=== PATIENT | female | born 1950 | race Asian ===

== ENCOUNTER 2019-11-17 19:52 | Inpatient (IN) | payer MEDICAID, MEDICARE, OTHER ==
[2019-11-17 23:05] VITALS: BP 158/91
--- NOTE | 2019-11-18 12:35 | Psychiatric Evaluation ---
DATE OF SERVICE: 11/18/2019 JUSTIFICATION FOR HOSPITALIZATION: Coming in from an ER exhibiting multiple symptoms, psychosis, SI, HI in the ER. HISTORY OF PRESENT ILLNESS: This is a 69-year-old female who talks very loudly on exam, very fast, is still hard for me to understand what she says. Apparently refused to take her medications at home, came to the ER. Per ER documentation, making statements of harming self and other people, poor orientation, withdrawn. On [id number], the patient is telling me to go away, does not want to talk to me, "you are arrogant at one point." It is really unclear what she is saying. Seems very impulsive, unpredictable, just lying on the chairs in the day room, sleeping. PAST PSYCHIATRIC HISTORY: Unclear. SOCIAL HISTORY: The patient is a very poor historian. Per documentation, there is not much information such as bipolar and schizophrenia. Medications were noted. Social unclear. We will need to have [employer] to increase collateral. MEDICAL HISTORY: Please see full H and P. MENTAL STATUS EXAMINATION: Disheveled, unkempt, lying down, small statured female, talking very quickly, heavy accent, hard to understand what she says. I asked her to repeat herself. This just makes her more and more upset. DIAGNOSIS: Likely schizophrenia. ASSESSMENT: The patient is requiring hospitalization, apparently was suicidal or homicidal, concerns for grave disability, seemingly confused on exam, but hard to fully assess. PLAN: Treatment plan includes group as well as milieu therapy. We will continue inpatient monitoring. Adjust and titrate medications. Restart antipsychotics. JOB# [id number]
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
[2019-11-19] MEDS ORDERED: GLUCAGON HCl 1 MG KIT IM PRN ×2 (11:23→11:45)
[2019-11-19] MEDS ORDERED: INSULIN LISPRO SLIDING SCALE 100 UNITS/ML UNIT SUBQ SCH (13:00)
--- NOTE | 2019-11-19 14:23 | Internal Medicine Prog Note ---
Internal Medicine Subjective - Subjective Service Date: 11/19/19 Patient seen and examined:: without staff Patient is:: awake, ambulating Internal Medicine Objective - Results Recent Labs: Laboratory Last Values POC Glucose 220 MG/DL (70 - 105) H 11/19/19 11:23 - Physical Exam Vitals and I&O: Vital Signs Temp 98.1 F 11/19/19 06:30 Pulse 108 11/19/19 06:30 Resp 19 11/19/19 06:30 BP 143/78 11/19/19 06:30 Pulse Ox 99 11/19/19 06:30 Intake & Output 11/18/19 11/19/19 11/19/19 18:59 06:59 18:59 Intake Total 880 120 Output Total 3 Balance 880 117 Intake: Oral 640 120 Other 240 Output: Urine 3 Stool 0 Other: # Voids 3 3 # Bowel Movements 0 0 Active Medications: Current Medications Acetaminophen (Tylenol) 650 mg PO Q4H PRN PRN Reason: Pain (Mild 1-3) Stop: 01/16/20 23:47 Last Admin: 11/19/19 10:06 Dose: 650 mg Dextrose (Glutose 40%) 18.75 gm PO PRN PRN PRN Reason: BS Below 70 if tolerate po Stop: 01/18/20 11:44 Donepezil HCl (Aricept) 5 mg PO HS [facility] Stop: 01/18/20 20:59 Glucagon (Glucagen) 1 mg IM PRN PRN PRN Reason: BS Below 70 if not tolerate po Stop: 01/18/20 11:44 Insulin Human Lispro (Humalog Insulin Sliding Scale) 0 units SUBQ ACHS [facility]; Protocol Stop: 01/18/20 16:29 Lorazepam (Ativan) 0.5 mg PO Q4HR PRN; Protocol PRN Reason: Anxiety Stop: 12/17/19 21:59 Nitrofurantoin Macrocrystals (Macrobid) 100 mg PO BID [facility]; Protocol Stop: 01/17/20 18:29 Last Admin: 11/19/19 09:29 Dose: 100 mg Risperidone (Risperdal) 0.5 mg PO BID [facility]; Protocol Stop: 01/17/20 16:59 Last Admin: 11/19/19 09:29 Dose: 0.5 mg Zolpidem Tartrate (Ambien) 5 mg PO HS PRN PRN Reason: Insomnia Stop: 01/16/20 23:47 HEENT: NC/AT Neck: Supple Lungs: CTAB Cardiovascular: RRR, Normal S1, Normal S2 Abdomen: soft Extremities: clear Neurological: no change Internal Medicine Assmt/Plan - Assessment Assessment: 1. Hyperglycemia 2. Schizophrenia, likely - Plan Plan: patient's random blood sugar is 220 consistent with d.m. will start patient on metformin once hga1c result is back
--- NOTE | 2019-11-19 16:41 | Progress Notes ---
DATE: 11/19/2019 SUBJECTIVE: The patient is in the hospital, it is really hard to understand her. She does speak Persian, but she talks very fast in a mumbled voice. She tells me that she was actually born in [place]. Staff noting she is A and O x 2 only. She is not aggressive or combative, but really wants to stay to herself while I am talking to her. She answers back to me, although it hard to understand. Then, she simply walks into a room and closed the door. Staff noting flat affect, seems to be hallucinating, talking to people that are not there, speaking Kosovan, Persian. Currently on a dosing of Risperdal, seems to be tolerating, documentation also noted of dementia. Medications were reviewed. Labs reviewed. Vitals reviewed. Blood pressure 105/63, pulse of 106. MENTAL STATUS EXAMINATION: Small statured female, acting really strange, mumbling to self, not making much sense on exam, very hard to follow her thought processes, noted dementia, confusional state, poor eye contact. DIAGNOSIS: Likely dementia, possible schizophrenia. It is unclear. Poor historian. ASSESSMENT: A 69-year-old female, hard to assess. Time spent with the patient and chart reviewed. PLAN: I will be initiating Aricept, continue dosing of antipsychotic medications, extend the hold. JOB# [id number]
[2019-11-19] MEDS: INSULIN LISPRO SLIDING SCALE 100 UNITS/ML UNIT SUBQ SCH ×2 (16:51→21:45)
[2019-11-20] MEDS: INSULIN LISPRO SLIDING SCALE 100 UNITS/ML UNIT SUBQ SCH ×4 (06:44→22:35)
--- NOTE | 2019-11-20 14:30 | Internal Medicine Prog Note ---
Internal Medicine Subjective - Subjective Service Date: 11/20/19 Patient seen and examined:: without staff Patient is:: awake, ambulating Per staff patient has:: no adverse event, no episodes of fall Internal Medicine Objective - Results Recent Labs: Laboratory Last Values POC Glucose 117 MG/DL (70 - 105) H 11/20/19 11:23 - Physical Exam Vitals and I&O: Vital Signs Temp 97.3 F 11/20/19 06:26 Pulse 103 11/20/19 06:26 Resp 17 11/20/19 08:00 BP 155/89 11/20/19 06:26 Pulse Ox 98 11/20/19 06:26 Intake & Output 11/19/19 11/20/19 11/20/19 18:59 06:59 18:59 Intake Total 1200 120 Balance 1200 120 Intake: Oral 1200 120 Other: # Voids 3 1 # Bowel Movements 0 0 Active Medications: Current Medications Acetaminophen (Tylenol) 650 mg PO Q4H PRN PRN Reason: Pain (Mild 1-3) Stop: 01/16/20 23:47 Last Admin: 11/19/19 22:28 Dose: 650 mg Dextrose (Glutose 40%) 18.75 gm PO PRN PRN PRN Reason: BS Below 70 if tolerate po Stop: 01/18/20 11:44 Donepezil HCl (Aricept) 5 mg PO HS [facility] Stop: 01/18/20 20:59 Last Admin: 11/19/19 21:45 Dose: 5 mg Glucagon (Glucagen) 1 mg IM PRN PRN PRN Reason: BS Below 70 if not tolerate po Stop: 01/18/20 11:44 Insulin Human Lispro (Humalog Insulin Sliding Scale) 0 units SUBQ ACHS [facility]; Protocol Stop: 01/18/20 16:29 Last Admin: 11/20/19 11:26 Dose: Not Given Lorazepam (Ativan) 0.5 mg PO Q4HR PRN; Protocol PRN Reason: Anxiety Stop: 12/17/19 21:59 Nitrofurantoin Macrocrystals (Macrobid) 100 mg PO BID [facility]; Protocol Stop: 01/17/20 18:29 Last Admin: 11/20/19 08:52 Dose: 100 mg Risperidone (Risperdal) 0.5 mg PO BID [facility]; Protocol Stop: 01/17/20 16:59 Last Admin: 11/20/19 08:52 Dose: 0.5 mg Zolpidem Tartrate (Ambien) 5 mg PO HS PRN PRN Reason: Insomnia Stop: 01/16/20 23:47 Last Admin: 11/19/19 22:29 Dose: 5 mg HEENT: NC/AT Neck: Supple Lungs: CTAB Cardiovascular: RRR, Normal S1, Normal S2 Abdomen: soft Extremities: clear Neurological: no change Internal Medicine Assmt/Plan - Assessment Assessment: 1. Hyperglycemia 2. Schizophrenia, likely - Plan Plan: continue sliding scale insulin continue to monitor blood sugars d.w with hesham
--- NOTE | 2019-11-20 20:51 | Progress Notes ---
DATE: 11/20/2019 SUBJECTIVE: Case was discussed with staff of the patient, reviewed records. Covering for Dr. Ramos. This is a 69-year-old female who was admitted on 11/17/2019. The patient was psychotic, suicidal and homicidal. She is very hard to understand. She refused to take her medication at home and in the Emergency Room. The patient was a poor historian. There is much information such as bipolar, schizophrenia. The patient is looking disheveled, disorganized, internally preoccupied. The patient continues to stay to herself and continues to be unable to participate in a meaningful conversation or make safe plan for self-care, easily agitated. She has been described as being aggressive, combative. She wants to stay to herself. She walked in the room, closed the door. She seems to be hallucinating. MENTAL STATUS EXAMINATION: The patient was sitting in her bed, poor eye contact, mumbling to herself, not making much sense, very hard to follow, maybe demented, schizophrenic. Dr. Ramos initiated her on Aricept yesterday. She is also on Risperdal 0.5 mg twice with no side effects, no sedation, no nausea, no extrapyramidal symptoms. ASSESSMENT AND PLAN: The patient continues to be psychotic, demented, confused, unable to make safe plan for self-care. We will continue outpatient group therapy, milieu therapy, adjust medication as needed. JOB# [id number]
[2019-11-21] MEDS: INSULIN LISPRO SLIDING SCALE 100 UNITS/ML UNIT SUBQ SCH ×4 (06:30→20:54)
--- NOTE | 2019-11-21 11:59 | Internal Medicine Prog Note ---
Internal Medicine Subjective - Subjective Service Date: 11/21/19 Patient is:: asleep Per staff patient has:: no adverse event, no episodes of fall Internal Medicine Objective - Results Recent Labs: Laboratory Last Values POC Glucose 145 MG/DL (70 - 105) H 11/21/19 11:18 - Physical Exam Vitals and I&O: Vital Signs Temp 97.8 F 11/21/19 06:38 Pulse 110 11/21/19 06:38 Resp 17 11/21/19 08:00 BP 109/69 11/21/19 06:38 Pulse Ox 96 11/21/19 06:38 Intake & Output 11/20/19 11/21/19 11/21/19 18:59 06:59 18:59 Intake Total 800 120 Balance 800 120 Intake: Oral 800 120 Other: # Voids 3 3 # Bowel Movements 1 Active Medications: Current Medications Acetaminophen (Tylenol) 650 mg PO Q4H PRN PRN Reason: Pain (Mild 1-3) Stop: 01/16/20 23:47 Last Admin: 11/19/19 22:28 Dose: 650 mg Dextrose (Glutose 40%) 18.75 gm PO PRN PRN PRN Reason: BS Below 70 if tolerate po Stop: 01/18/20 11:44 Donepezil HCl (Aricept) 5 mg PO HS [facility] Stop: 01/18/20 20:59 Last Admin: 11/20/19 21:27 Dose: 5 mg Glucagon (Glucagen) 1 mg IM PRN PRN PRN Reason: BS Below 70 if not tolerate po Stop: 01/18/20 11:44 Insulin Human Lispro (Humalog Insulin Sliding Scale) 0 units SUBQ ACHS [facility]; Protocol Stop: 01/18/20 16:29 Last Admin: 11/21/19 11:24 Dose: Not Given Lorazepam (Ativan) 0.5 mg PO Q4HR PRN; Protocol PRN Reason: Anxiety Stop: 12/17/19 21:59 Nitrofurantoin Macrocrystals (Macrobid) 100 mg PO BID [facility]; Protocol Stop: 01/17/20 18:29 Last Admin: 11/21/19 08:47 Dose: 100 mg Risperidone (Risperdal) 0.5 mg PO BID [facility]; Protocol Stop: 01/17/20 16:59 Last Admin: 11/21/19 08:47 Dose: 0.5 mg Zolpidem Tartrate (Ambien) 5 mg PO HS PRN PRN Reason: Insomnia Stop: 01/16/20 23:47 Last Admin: 11/20/19 21:27 Dose: 5 mg HEENT: NC/AT Neck: Supple Lungs: CTAB Cardiovascular: RRR, Normal S1, Normal S2 Abdomen: soft Extremities: clear Neurological: no change Internal Medicine Assmt/Plan - Assessment Assessment: 1. Hyperglycemia 2. Schizophrenia, likely - Plan Plan: continue sliding scale insulin continue to monitor blood sugars check hga1c [email or web address]
--- NOTE | 2019-11-21 19:00 | Progress Notes ---
DATE: 11/21/2019 Case was discussed with staff of the patient, reviewed records. The patient continues to stay in bed, internally preoccupied, isolating herself. Continues to be unpredictable and impulsive. The patient is a poor historian on mental status examination. The patient was sitting in her bed with poor eye contact, mumbling to herself, unable to follow direction. She is sleeping and eating better. No side effects with the medication, no sedation, no nausea, no extrapyramidal symptoms. She is a bit calmer compared to yesterday and we will continue to work with the patient in group therapy, milieu therapy, and adjust the medication as needed. JOB# [id number]
[2019-11-22] MEDS: INSULIN LISPRO SLIDING SCALE 100 UNITS/ML UNIT SUBQ SCH ×4 (06:34→20:56)
--- NOTE | 2019-11-22 21:23 | Psych Progress Note ---
Psych Progress Note - Intro Date of Progress Note: 11/22/19 - Assessment Assessment: Patient interviewed, case discussed with staff, chart and records reviewed. Per the staff the patient remains in bed all day appears to be depressed and withdrawn not interacting. The patient was interviewed at bedside she awakes to her name but quickly falls back asleep uncooperative with the interview. Per previous notes that the patient has been depressed irritable and not cooperating with the treatment no side effects noted to the medications. No plan for self-care. - Vitals, I&O Vitals: Vital Signs - 24 hr 11/22/19 11/22/19 11/22/19 06:36 08:00 14:00 Temp 97.5 F 97.9 F HR 95 92 RR 20 18 20 BP 131/69 140/78 O2 Sat % 97 96 11/22/19 11/22/19 19:51 20:00 Temp 96.8 F HR 103 RR 20 20 BP 133/76 O2 Sat % 98 - Objective Psych General Appearance: Report: No acute distress Psych Behavior: Report: Alert, Calm, Uncooperative Psych Speech: Report: Mumbled, Soft Psych Mood: Report: Depressed, Irritable Psych Affect: Report: Constricted Psych Cognition: Report: Confused Psych Insight: Report: Impaired Psych Judgement: Report: Impaired - Plan Plan: Continue current treatment plan, continue medications, continue to monitor behaviors. - Review of Relevant Data Review of Relevant Data: I have reviewed the following items and time shirley (where applicable) has been applied. Psych Data Reviewed: Vitals - Medications Current Medications: Current Medications Acetaminophen (Tylenol) 650 mg PO Q4H PRN PRN Reason: Pain (Mild 1-3) Stop: 01/16/20 23:47 Last Admin: 11/19/19 22:28 Dose: 650 mg Dextrose (Glutose 40%) 18.75 gm PO PRN PRN PRN Reason: BS Below 70 if tolerate po Stop: 01/18/20 11:44 Donepezil HCl (Aricept) 5 mg PO HS [facility] Stop: 01/18/20 20:59 Last Admin: 11/22/19 20:56 Dose: 5 mg Glucagon (Glucagen) 1 mg IM PRN PRN PRN Reason: BS Below 70 if not tolerate po Stop: 01/18/20 11:44 Insulin Human Lispro (Humalog Insulin Sliding Scale) 0 units SUBQ ACHS [facility]; Protocol Stop: 01/18/20 16:29 Last Admin: 11/22/19 20:56 Dose: Not Given Lorazepam (Ativan) 0.5 mg PO Q4HR PRN; Protocol PRN Reason: Anxiety Stop: 12/17/19 21:59 Nitrofurantoin Macrocrystals (Macrobid) 100 mg PO BID [facility]; Protocol Stop: 01/17/20 18:29 Last Admin: 11/22/19 16:17 Dose: 100 mg Risperidone (Risperdal) 0.5 mg PO BID [facility]; Protocol Stop: 01/17/20 16:59 Last Admin: 11/22/19 16:17 Dose: 0.5 mg Zolpidem Tartrate (Ambien) 5 mg PO HS PRN PRN Reason: Insomnia Stop: 01/16/20 23:47 Last Admin: 11/22/19 20:56 Dose: 5 mg
[2019-11-23] MEDS: INSULIN LISPRO SLIDING SCALE 100 UNITS/ML UNIT SUBQ SCH ×4 (06:33→20:34)
--- NOTE | 2019-11-23 19:14 | Psych Progress Note ---
Psych Progress Note - Intro Date of Progress Note: 11/23/19 - Assessment Assessment: Patient interviewed, case discussed with staff, chart and records reviewed. Per the staff the patient remains in bed all day appears to be depressed and withdrawn not interacting. The patient was seen in [facility] hallway today but she is uncooperative. Per previous notes that the patient has been depressed irritable and not cooperating with the treatment no side effects noted to the medications. No plan for self-care. - Vitals, I&O Vitals: Vital Signs - 24 hr 11/22/19 11/22/19 11/23/19 19:51 20:00 06:18 Temp 96.8 F 97.1 F HR 103 107 RR 20 20 20 BP 133/76 136/77 O2 Sat % 98 96 11/23/19 11/23/19 07:18 14:00 Temp 98.5 F HR 97 RR 18 20 BP 156/85 O2 Sat % 95 - Objective Psych General Appearance: Report: No acute distress Psych Behavior: Report: Alert, Calm, Uncooperative Psych Speech: Report: Mumbled, Soft Psych Mood: Report: Depressed, Irritable Psych Affect: Report: Constricted Psych Cognition: Report: Confused Psych Insight: Report: Impaired Psych Judgement: Report: Impaired - Plan Plan: Continue current treatment plan, continue medications, continue to monitor behaviors. - Review of Relevant Data Review of Relevant Data: I have reviewed the following items and time shirley (where applicable) has been applied. - Medications Current Medications: Current Medications Acetaminophen (Tylenol) 650 mg PO Q4H PRN PRN Reason: Pain (Mild 1-3) Stop: 01/16/20 23:47 Last Admin: 11/23/19 18:49 Dose: 650 mg Dextrose (Glutose 40%) 18.75 gm PO PRN PRN PRN Reason: BS Below 70 if tolerate po Stop: 01/18/20 11:44 Donepezil HCl (Aricept) 5 mg PO HS [facility] Stop: 01/18/20 20:59 Last Admin: 11/22/19 20:56 Dose: 5 mg Glucagon (Glucagen) 1 mg IM PRN PRN PRN Reason: BS Below 70 if not tolerate po Stop: 01/18/20 11:44 Insulin Human Lispro (Humalog Insulin Sliding Scale) 0 units SUBQ ACHS [facility]; Protocol Stop: 01/18/20 16:29 Last Admin: 11/23/19 17:08 Dose: Not Given Lorazepam (Ativan) 0.5 mg PO Q4HR PRN; Protocol PRN Reason: Anxiety Stop: 12/17/19 21:59 Nitrofurantoin Macrocrystals (Macrobid) 100 mg PO BID [facility]; Protocol Stop: 01/17/20 18:29 Last Admin: 11/23/19 16:25 Dose: 100 mg Risperidone (Risperdal) 0.5 mg PO BID [facility]; Protocol Stop: 01/17/20 16:59 Last Admin: 11/23/19 16:25 Dose: 0.5 mg Zolpidem Tartrate (Ambien) 5 mg PO HS PRN PRN Reason: Insomnia Stop: 01/16/20 23:47 Last Admin: 11/22/19 20:56 Dose: 5 mg
[2019-11-24] MEDS: INSULIN LISPRO SLIDING SCALE 100 UNITS/ML UNIT SUBQ SCH ×5 (06:50→20:17)
--- NOTE | 2019-11-24 11:43 | Internal Medicine Prog Note ---
Internal Medicine Subjective - Subjective Service Date: 11/24/19 Patient is:: asleep Per staff patient has:: no adverse event, no episodes of fall Internal Medicine Objective - Results Recent Labs: Laboratory Last Values POC Glucose 87 MG/DL (70 - 105) 11/24/19 06:14 - Physical Exam Vitals and I&O: Vital Signs Temp 96.4 F 11/24/19 06:07 Pulse 105 11/24/19 06:07 Resp 20 11/24/19 08:00 BP 146/83 11/24/19 06:07 Pulse Ox 98 11/24/19 06:07 Intake & Output 11/23/19 11/24/19 11/24/19 18:59 06:59 18:59 Intake Total 700 360 Balance 700 360 Intake: Oral 700 360 Other: # Voids 1 # Bowel Movements 1 1 Active Medications: Current Medications Acetaminophen (Tylenol) 650 mg PO Q4H PRN PRN Reason: Pain (Mild 1-3) Stop: 01/16/20 23:47 Last Admin: 11/23/19 18:49 Dose: 650 mg Dextrose (Glutose 40%) 18.75 gm PO PRN PRN PRN Reason: BS Below 70 if tolerate po Stop: 01/18/20 11:44 Donepezil HCl (Aricept) 5 mg PO HS [facility] Stop: 01/18/20 20:59 Last Admin: 11/23/19 20:34 Dose: 5 mg Glucagon (Glucagen) 1 mg IM PRN PRN PRN Reason: BS Below 70 if not tolerate po Stop: 01/18/20 11:44 Insulin Human Lispro (Humalog Insulin Sliding Scale) 0 units SUBQ ACHS [facility]; Protocol Stop: 01/18/20 16:29 Last Admin: 11/24/19 06:50 Dose: Not Given Lorazepam (Ativan) 0.5 mg PO Q4HR PRN; Protocol PRN Reason: Anxiety Stop: 12/17/19 21:59 Nitrofurantoin Macrocrystals (Macrobid) 100 mg PO BID [facility]; Protocol Stop: 01/17/20 18:29 Last Admin: 11/24/19 08:45 Dose: 100 mg Risperidone (Risperdal) 0.5 mg PO BID [facility]; Protocol Stop: 01/17/20 16:59 Last Admin: 11/24/19 08:45 Dose: 0.5 mg Zolpidem Tartrate (Ambien) 5 mg PO HS PRN PRN Reason: Insomnia Stop: 01/16/20 23:47 Last Admin: 11/23/19 20:34 Dose: 5 mg HEENT: NC/AT Neck: Supple Lungs: CTAB Cardiovascular: RRR, Normal S1, Normal S2 Abdomen: soft Extremities: clear Neurological: no change Internal Medicine Assmt/Plan - Assessment Assessment: 1. DM, poorly controlled with HGA!C 2. Schizophrenia - Plan Plan: continue sliding scale insulin continue to monitor blood sugars will start metformin 500 mg po daily check stat basic metabolic panel Nutritional Asmnt/Malnutr-PDOC - Dietary Evaluation Malnutrition Findings (Please click <Entered> for more info): Nutritional Asmnt/Malnutrition Start: 11/22/19 08: 14 Text: Status: Complete Freq: Protocol: Document 11/22/19 08:14 BRUCE (Rec: 11/22/19 08:36 BRUCE [id number]) Nutritional Asmnt/Malnutrition Patient General Information Nutritional Screening Low Risk Diagnosis Psychosis Subjective Information Patient was admitted from [facility]. Was admitted 5150. Speaks [place] and Armenian. Per nursing notes, patient is guarded, withdrawn, isolative. Dietary providing ~2300 kcal, 110 gm protein/day, adequate to meet nutrient needs with current intake. Current Diet Order/ Nutrition Support Mechanical soft, chopped Patient / S.O Not Indicated Pertinent Medications humalog Pertinent Labs POC Glucose 102-152 11/18/2019: HGA1C 6.9, Cholesterol 230, HDL 40, LDL 152 Nutritional Hx/Data Height 1.45 m Height (Calculated Centimeters) 144.8 Current Weight (lbs) 50.802 kg Weight (Calculated Kilograms) 50.8 Weight (Calculated Grams) 37231.3 [place] Body Weight 92.5 % [place] Body Weight 121 Body Mass Index (BMI) 24.2 Recent Weight Change No Weight Status Approriate GI Symptoms GI Symptoms None Last BM 11/20 x 1 Difficult in: None Food Allergies No Cultural/Ethnic/Sabianism Belief none indicated Usual diet at home uknown Skin Integrity/Comment: Alexandro 20, Intact Current %PO Good (75-100%) Estimated Nutritional Goals BEE in Kcals: Using Current wt Calories/Kcals/Kg 50.9kg 25-30 kcal/kg Kcals Calculated ~4183-2950 kcal/day Protein: Using Current wt Protein g/k-1.2 gm/kg Protein Calculated ~50-60gm/day Fluid: ml ~4920-9061 ml/day Nutritional Problem 1. Problem Problem No nutrition diagnosis at this time Intervention/Recommendation Comments Continue current diet as tolerated by patient Expected Outcomes/Goals Expected Outcomes/Goals oral intake >75% of meals, weight stable or trend toward IBW, nutrition related labs WNL F/U LR 11/28-
--- NOTE | 2019-11-25 00:18 | Progress Notes ---
DATE: 11/24/2019 Case was discussed with staff of the patient, reviewed records. The patient continues to isolate in her room. Continues to be withdrawn, poor interaction, uncooperative, depressed, irritable. No side effects with the medication, no sedation, no nausea, no extrapyramidal symptoms. Unable to make safe plan for self-care. MENTAL STATUS EXAMINATION: The patient is appropriately dressed, not very groomed, internally preoccupied, talking to herself, uncooperative and impulsive with no eye contact, whatsoever. Mumbling to herself, unable to make safe plan for self-care. No side effects with the medication, no sedation, no nausea, no extrapyramidal symptoms. I will continue to work with the patient in group therapy, milieu therapy, and adjust the medication as needed. JOB# [id number]
[2019-11-25] MEDS: INSULIN LISPRO SLIDING SCALE 100 UNITS/ML UNIT SUBQ SCH ×4 (06:58→20:43)
--- NOTE | 2019-11-25 16:04 | Progress Notes ---
DATE: 11/25/2019 SUBJECTIVE: The patient in the hospital, still very unruly, loud at times, hard to really understand what she is saying, isolative in her room, withdrawn, poor interaction with others, refusing to speak with me today, most of the time spent with the patient trying to speak with her and also staff. I asked staff how she has been doing and also got an update from staff. Reviewed nursing notes. The patient slept comfortably in the bed for about 7 hours, calm and isolative. Medications were reviewed. Labs reviewed. Vitals reviewed, blood pressure 126/63, pulse of 95. MENTAL STATUS EXAMINATION: Disheveled, unkempt, fair eye contact. Speech hard to understand. Not really engaging, confused appearing. Poor orientation. PLAN: We will continue inpatient monitoring. Complex case, hard to really get any information from her. The patient may be conserved from what I gather. We will continue inpatient monitoring. We will attempt to get more information. JOB# [id number]
[2019-11-26] MEDS: INSULIN LISPRO SLIDING SCALE 100 UNITS/ML UNIT SUBQ SCH ×4 (06:40→20:06)
--- NOTE | 2019-11-26 13:54 | Internal Medicine Prog Note ---
Internal Medicine Subjective - Subjective Service Date: 11/26/19 Patient is:: asleep Per staff patient has:: no adverse event, no episodes of fall Internal Medicine Objective - Results Recent Labs: Laboratory Last Values POC Glucose 139 MG/DL (70 - 105) H 11/26/19 11:29 - Physical Exam Vitals and I&O: Vital Signs Temp 97.7 F 11/26/19 06:26 Pulse 93 11/26/19 06:26 Resp 18 11/26/19 06:26 BP 104/74 11/26/19 06:26 Pulse Ox 97 11/26/19 06:26 Intake & Output 11/25/19 11/26/19 11/26/19 18:59 06:59 18:59 Intake Total 900 120 Balance 900 120 Intake: Oral 900 120 Other: # Voids 3 2 # Bowel Movements 1 0 Active Medications: Current Medications Acetaminophen (Tylenol) 650 mg PO Q4H PRN PRN Reason: Pain (Mild 1-3) Stop: 01/16/20 23:47 Last Admin: 11/23/19 18:49 Dose: 650 mg Dextrose (Glutose 40%) 18.75 gm PO PRN PRN PRN Reason: BS Below 70 if tolerate po Stop: 01/18/20 11:44 Donepezil HCl (Aricept) 5 mg PO HS [facility] Stop: 01/18/20 20:59 Last Admin: 11/25/19 20:43 Dose: 5 mg Glucagon (Glucagen) 1 mg IM PRN PRN PRN Reason: BS Below 70 if not tolerate po Stop: 01/18/20 11:44 Insulin Human Lispro (Humalog Insulin Sliding Scale) 0 units SUBQ ACHS [facility]; Protocol Stop: 01/18/20 16:29 Last Admin: 11/26/19 12:06 Dose: Not Given Lorazepam (Ativan) 0.5 mg PO Q4HR PRN; Protocol PRN Reason: Anxiety Stop: 12/17/19 21:59 Metformin HCl (Glucophage) 500 mg PO DAILY [facility] Stop: 01/24/20 08:59 Last Admin: 11/26/19 09:05 Dose: 500 mg Risperidone (Risperdal) 0.5 mg PO BID [facility]; Protocol Stop: 01/17/20 16:59 Last Admin: 11/26/19 09:05 Dose: 0.5 mg Zolpidem Tartrate (Ambien) 5 mg PO HS PRN PRN Reason: Insomnia Stop: 01/16/20 23:47 Last Admin: 11/23/19 20:34 Dose: 5 mg HEENT: NC/AT Neck: Supple Lungs: CTAB Cardiovascular: RRR, Normal S1, Normal S2 Abdomen: soft Extremities: clear Neurological: no change Internal Medicine Assmt/Plan - Assessment Assessment: 1. DM, poorly controlled with HGA!C 2. Schizophrenia - Plan Plan: continue sliding scale insulin continue to monitor blood sugars will increase metformin to 500 mg po BID d/w r.n. the plan Nutritional Asmnt/Malnutr-PDOC - Dietary Evaluation Malnutrition Findings (Please click <Entered> for more info): Nutritional Asmnt/Malnutrition Start: 11/22/19 08: 14 Text: Status: Complete Freq: Protocol: Document 11/22/19 08:14 BRUCE (Rec: 11/22/19 08:36 BRUCE MIKE- [id number]) Nutritional Asmnt/Malnutrition Patient General Information Nutritional Screening Low Risk Diagnosis Psychosis Subjective Information Patient was admitted from [facility]. Was admitted 5150. Speaks Filipino and Chinese. Per nursing notes, patient is guarded, withdrawn, isolative. Dietary providing ~2300 kcal, 110 gm protein/day, adequate to meet nutrient needs with current intake. Current Diet Order/ Nutrition Support Mechanical soft, chopped Patient / S.O Not Indicated Pertinent Medications humalog Pertinent Labs POC Glucose 102-152 11/18/2019: HGA1C 6.9, Cholesterol 230, HDL 40, LDL 152 Nutritional Hx/Data Height 1.45 m Height (Calculated Centimeters) 144.8 Current Weight (lbs) 50.802 kg Weight (Calculated Kilograms) 50.8 Weight (Calculated Grams) 97165.3 [place] Body Weight 92.5 % [place] Body Weight 121 Body Mass Index (BMI) 24.2 Recent Weight Change No Weight Status Approriate GI Symptoms GI Symptoms None Last BM 11/20 x 1 Difficult in: None Food Allergies No Cultural/Ethnic/Temple Belief none indicated Usual diet at home uknown Skin Integrity/Comment: Alexandro 20, Intact Current %PO Good (75-100%) Estimated Nutritional Goals BEE in Kcals: Using Current wt Calories/Kcals/Kg 50.9kg 25-30 kcal/kg Kcals Calculated ~5065-5594 kcal/day Protein: Using Current wt Protein g/k-1.2 gm/kg Protein Calculated ~50-60gm/day Fluid: ml ~3852-3194 ml/day Nutritional Problem 1. Problem Problem No nutrition diagnosis at this time Intervention/Recommendation Comments Continue current diet as tolerated by patient Expected Outcomes/Goals Expected Outcomes/Goals oral intake >75% of meals, weight stable or trend toward IBW, nutrition related labs WNL F/U LR 11/28-
[2019-11-27] MEDS: INSULIN LISPRO SLIDING SCALE 100 UNITS/ML UNIT SUBQ SCH ×4 (06:43→20:19)
[2019-11-28] MEDS: INSULIN LISPRO SLIDING SCALE 100 UNITS/ML UNIT SUBQ SCH ×4 (06:39→20:32)
--- NOTE | 2019-11-28 14:50 | Internal Medicine Prog Note ---
Internal Medicine Subjective - Subjective Service Date: 11/28/19 Patient is:: asleep Per staff patient has:: no adverse event, no episodes of fall Internal Medicine Objective - Results Recent Labs: Laboratory Last Values POC Glucose 148 MG/DL (70 - 105) H 11/28/19 11:41 - Physical Exam Vitals and I&O: Vital Signs Temp 98.9 F 11/28/19 06:27 Pulse 103 11/28/19 06:27 Resp 18 11/28/19 08:00 BP 135/83 11/28/19 06:27 Pulse Ox 96 11/28/19 06:27 Intake & Output 11/27/19 11/28/19 11/28/19 18:59 06:59 18:59 Intake Total 1000 120 Balance 1000 120 Intake: Oral 1000 120 Other: # Voids 4 2 # Bowel Movements 1 0 Active Medications: Current Medications Acetaminophen (Tylenol) 650 mg PO Q4H PRN PRN Reason: Pain (Mild 1-3) Stop: 01/16/20 23:47 Last Admin: 11/27/19 06:32 Dose: 650 mg Dextrose (Glutose 40%) 18.75 gm PO PRN PRN PRN Reason: BS Below 70 if tolerate po Stop: 01/18/20 11:44 Donepezil HCl (Aricept) 5 mg PO HS [facility] Stop: 01/18/20 20:59 Last Admin: 11/27/19 20:18 Dose: 5 mg Glucagon (Glucagen) 1 mg IM PRN PRN PRN Reason: BS Below 70 if not tolerate po Stop: 01/18/20 11:44 Insulin Human Lispro (Humalog Insulin Sliding Scale) 0 units SUBQ ACHS [facility]; Protocol Stop: 01/18/20 16:29 Last Admin: 11/28/19 06:39 Dose: Not Given Lorazepam (Ativan) 0.5 mg PO Q4HR PRN; Protocol PRN Reason: Anxiety Stop: 12/17/19 21:59 Metformin HCl (Glucophage) 500 mg PO BID [facility] Stop: 01/25/20 16:59 Last Admin: 11/28/19 08:02 Dose: 500 mg Risperidone (Risperdal) 0.5 mg PO BID [facility]; Protocol Stop: 01/26/20 16:59 Last Admin: 11/28/19 08:02 Dose: 0.5 mg Zolpidem Tartrate (Ambien) 5 mg PO HS PRN PRN Reason: Insomnia Stop: 01/16/20 23:47 Last Admin: 11/23/19 20:34 Dose: 5 mg HEENT: NC/AT Neck: Supple Lungs: CTAB Cardiovascular: RRR, Normal S1, Normal S2 Abdomen: soft Extremities: clear Neurological: no change Internal Medicine Assmt/Plan - Assessment Assessment: 1. DM, poorly controlled 2. Schizophrenia - Plan Plan: continue sliding scale insulin continue to monitor blood sugars continue metformin to 500 mg po BID d/w r.n. the plan Nutritional Asmnt/Malnutr-PDOC - Dietary Evaluation Malnutrition Findings (Please click <Entered> for more info): Nutritional Asmnt/Malnutrition Start: 11/22/19 08: 14 Text: Status: Complete Freq: Protocol: Document 11/22/19 08:14 BRUCE (Rec: 11/22/19 08:36 BRUCE MIKE- [id number]) Nutritional Asmnt/Malnutrition Patient General Information Nutritional Screening Low Risk Diagnosis Psychosis Subjective Information Patient was admitted from [facility]. Was admitted 5150. Speaks Luxembourger and Emirati. Per nursing notes, patient is guarded, withdrawn, isolative. Dietary providing ~2300 kcal, 110 gm protein/day, adequate to meet nutrient needs with current intake. Current Diet Order/ Nutrition Support Mechanical soft, chopped Patient / S.O Not Indicated Pertinent Medications humalog Pertinent Labs POC Glucose 102-152 11/18/2019: HGA1C 6.9, Cholesterol 230, HDL 40, LDL 152 Nutritional Hx/Data Height 1.45 m Height (Calculated Centimeters) 144.8 Current Weight (lbs) 50.802 kg Weight (Calculated Kilograms) 50.8 Weight (Calculated Grams) 36116.3 [place] Body Weight 92.5 % [place] Body Weight 121 Body Mass Index (BMI) 24.2 Recent Weight Change No Weight Status Approriate GI Symptoms GI Symptoms None Last BM 11/20 x 1 Difficult in: None Food Allergies No Cultural/Ethnic/Evangelical Belief none indicated Usual diet at home uknown Skin Integrity/Comment: Alexandro 20, Intact Current %PO Good (75-100%) Estimated Nutritional Goals BEE in Kcals: Using Current wt Calories/Kcals/Kg 50.9kg 25-30 kcal/kg Kcals Calculated ~7335-1160 kcal/day Protein: Using Current wt Protein g/k-1.2 gm/kg Protein Calculated ~50-60gm/day Fluid: ml ~3106-9748 ml/day Nutritional Problem 1. Problem Problem No nutrition diagnosis at this time Intervention/Recommendation Comments Continue current diet as tolerated by patient Expected Outcomes/Goals Expected Outcomes/Goals oral intake >75% of meals, weight stable or trend toward IBW, nutrition related labs WNL F/U LR 11/28-
--- NOTE | 2019-11-28 16:18 | Progress Notes ---
DATE: 11/27/2019 SUBJECTIVE: The patient is currently in the hospital, still unruly, loud at times, resting comfortably. No current agitation. Seems to be generally calmer, slept for about 7 hours, hard to understand. I tried to talk to her, poorly oriented just to her name. Mostly withdrawn, isolative, forgetful, seems to know that she is in the hospital, pacing back and forth at times, mostly Colombian speaking, but does speak some Afghan, but I have a hard time understanding her. She talks really fast and stops talking, walks away. Tolerant to medications. Presenting due to psychotic symptoms. ASSESSMENT: The patient remains symptomatic, ongoing psychosis, mood symptoms on behaviors, mostly withdrawn, keeps to self, unkempt. She is a 69-year-old Colombian female with ongoing symptoms as noted. Medications reviewed. Labs reviewed. Vitals were reviewed. Blood pressure 127/77, pulse ranges from 94 to 123. PLAN: We will continue to monitor, seems like she becomes tachycardic at times for some odd reason. Concerns that it may be due to the Risperdal. We will continue dosing of Risperdal at 0.5 mg just to be on the side of caution, continue to monitor. [facility]# [id number]
--- NOTE | 2019-11-28 16:18 | Progress Notes ---
DATE: 11/28/2019 SUBJECTIVE: A 69-year-old female, currently in the hospital, unruly, loud at times, having hard time understanding what she is saying. Slept for about 8 hours. Poorly oriented. Mood "okay." Isolative, withdrawn, poor interaction, irritable, easily agitated, still responding to internal stimuli. No EPS, no akathisia. Currently on dosing of Risperdal. Recent dose modifications, discussed with staff at length. Medications were reviewed. Labs were reviewed. Vitals were reviewed. Blood pressure 145/81, pulse of 95. MENTAL STATUS EXAMINATION: Stated age, disheveled, unkempt, mostly withdrawn, keeps to self, mumbling to self. DIAGNOSIS: Unclear, seems to have some aspects of dementia, possibly schizophrenia. ASSESSMENT: A 69-year-old female mumbles to self, responding to internal stimuli. PLAN: We will continue dosing of medications, Aricept, Risperdal. Ongoing symptoms, safety concerns. [facility]# [id number]
--- NOTE | 2019-11-28 16:18 | Progress Notes ---
DATE: 11/26/2019 SUBJECTIVE: A 69-year-old female, currently in the hospital, isolative, withdrawn, poor interactions, uncooperative, depressed, still irritable, mostly withdrawn, keeps to self or to really assess how she is doing, rambling, talking nonsense. Time spent with the patient. Medications were reviewed. Labs were reviewed. Slept about 7 hours. No distress. Remains calm. I am not really able to converse with her about her care moving forward to having a hard time speaking with her. Per social media content manager note, the patient of Dr. Leon, residing at home with her , daughter involved. Medications were reviewed. Labs were reviewed. Vitals were reviewed. got involved with care. No side effects noted to medications. Mental status, little change since yesterday. ASSESSMENT AND PLAN: A 69-year-old female, disoriented and having a hard time assessing her, impulsive, unpredictable. We will continue to monitor. [facility]# [id number]
[2019-11-29] MEDS: INSULIN LISPRO SLIDING SCALE 100 UNITS/ML UNIT SUBQ SCH ×4 (06:35→21:20)
--- NOTE | 2019-11-29 12:11 | Progress Notes ---
DATE: 11/29/2019 SUBJECTIVE: The patient in the hospital, still impoverished thought processes. Slept about 7-1/2 hours, withdrawn, mostly keeps to self, speaks Palauan Welsh, wears a facemask, just stares at me blankly, does not want to say much. It seems that she understands my questions, but is not responding back. Staff noting she is forgetful, depressed, mostly withdrawn. Medications reviewed. Vitals reviewed. Labs reviewed. Blood pressure 128/70, pulse of 88. ASSESSMENT: A 69-year-old female. She may be approaching her baseline. We will coordinate care with social insurance analyst to see what her next level of care might be. She is going to go home or needs to go to a facility. Apparently, she sees an outside psychiatrist, Dr. Leon. The patient seems to be fairly independent with her ADLs, but does require some prompting. We will monitor closely at this time. JOB# [id number]
[2019-11-30] MEDS: INSULIN LISPRO SLIDING SCALE 100 UNITS/ML UNIT SUBQ SCH ×4 (06:46→21:10)
--- NOTE | 2019-11-30 11:35 | Progress Notes ---
DATE: 11/30/2019 SUBJECTIVE: A 69-year-old female who slept about 7-1/2 hours, still poorly oriented, hard to interview, will just walk away. I tried to engage with her. She does not want to really talk with me. States she is "okay," stating she slept "okay." Staff noting she has been redirectable but isolative, withdrawn, mostly depressed, keeps to self, negative symptoms present. Isolative, withdrawn. She has not been aggressive or agitated, but there are concerns really about her ability to tend to her basic needs and be cared for at a lower level of care. Doing fairly well with medications, taking medications. Small dose of Risperdal, Aricept. Medications were reviewed. Labs reviewed. Vitals were reviewed. Blood pressure 145/66, pulse of 83. No overt side effects. ASSESSMENT: A 69-year-old female, confused, concerns for dementia, underlying psychotic illness. Seems to be improving, generally calmer. She may be approaching her baseline level. PLAN: We will continue to monitor inpatient. ____. JOB# [id number]
[2019-12-01] MEDS: INSULIN LISPRO SLIDING SCALE 100 UNITS/ML UNIT SUBQ SCH ×4 (06:35→21:03)
--- NOTE | 2019-12-01 14:52 | Internal Medicine Prog Note ---
Internal Medicine Subjective - Subjective Service Date: 12/01/19 Patient seen and examined:: without staff Patient is:: asleep Per staff patient has:: no adverse event, no episodes of fall Internal Medicine Objective - Results Recent Labs: Laboratory Last Values POC Glucose 140 MG/DL (70 - 105) H 12/01/19 11:39 - Physical Exam Vitals and I&O: Vital Signs Temp 97.1 F 12/01/19 06:35 Pulse 68 12/01/19 06:35 Resp 18 12/01/19 06:35 BP 111/66 12/01/19 06:35 Pulse Ox 98 12/01/19 06:35 Intake & Output 11/30/19 12/01/19 12/01/19 18:59 06:59 18:59 Intake Total 870 360 Balance 870 360 Intake: Oral 870 360 Other: # Voids 1 1 # Bowel Movements 1 Active Medications: Current Medications Acetaminophen (Tylenol) 650 mg PO Q4H PRN PRN Reason: Pain (Mild 1-3) Stop: 01/16/20 23:47 Last Admin: 11/27/19 06:32 Dose: 650 mg Dextrose (Glutose 40%) 18.75 gm PO PRN PRN PRN Reason: BS Below 70 if tolerate po Stop: 01/18/20 11:44 Donepezil HCl (Aricept) 5 mg PO HS [facility] Stop: 01/18/20 20:59 Last Admin: 11/30/19 21:09 Dose: 5 mg Glucagon (Glucagen) 1 mg IM PRN PRN PRN Reason: BS Below 70 if not tolerate po Stop: 01/18/20 11:44 Insulin Human Lispro (Humalog Insulin Sliding Scale) 0 units SUBQ ACHS [facility]; Protocol Stop: 01/18/20 16:29 Last Admin: 12/01/19 11:37 Dose: Not Given Lorazepam (Ativan) 0.5 mg PO Q4HR PRN; Protocol PRN Reason: Anxiety Stop: 12/17/19 21:59 Last Admin: 12/01/19 08:32 Dose: 0.5 mg Metformin HCl (Glucophage) 500 mg PO BID [facility] Stop: 01/25/20 16:59 Last Admin: 12/01/19 08:31 Dose: 500 mg Risperidone (Risperdal) 0.5 mg PO BID [facility]; Protocol Stop: 01/26/20 16:59 Last Admin: 12/01/19 08:32 Dose: 0.5 mg Zolpidem Tartrate (Ambien) 5 mg PO HS PRN PRN Reason: Insomnia Stop: 01/16/20 23:47 Last Admin: 11/29/19 21:20 Dose: 5 mg HEENT: NC/AT Neck: Supple Lungs: CTAB Cardiovascular: RRR, Normal S1, Normal S2 Abdomen: soft Extremities: clear Neurological: no change Internal Medicine Assmt/Plan - Assessment Assessment: 1. DM, poorly controlled 2. Schizophrenia - Plan Plan: continue sliding scale insulin continue to monitor blood sugars continue metformin to 500 mg po BID d/w r.n. the plan Nutritional Asmnt/Malnutr-PDOC - Dietary Evaluation Malnutrition Findings (Please click <Entered> for more info): Nutritional Asmnt/Malnutrition Start: 11/22/19 08: 14 Text: Status: Complete Freq: Protocol: Document 11/22/19 08:14 BRUCE (Rec: 11/22/19 08:36 BRUCE MARIEN- [id number]) Nutritional Asmnt/Malnutrition Patient General Information Nutritional Screening Low Risk Diagnosis Psychosis Subjective Information Patient was admitted from [facility]. Was admitted 5150. Speaks Turkmen and Japanese. Per nursing notes, patient is guarded, withdrawn, isolative. Dietary providing ~2300 kcal, 110 gm protein/day, adequate to meet nutrient needs with current intake. Current Diet Order/ Nutrition Support Mechanical soft, chopped Patient / S.O Not Indicated Pertinent Medications humalog Pertinent Labs POC Glucose 102-152 11/18/2019: HGA1C 6.9, Cholesterol 230, HDL 40, LDL 152 Nutritional Hx/Data Height 1.45 m Height (Calculated Centimeters) 144.8 Current Weight (lbs) 50.802 kg Weight (Calculated Kilograms) 50.8 Weight (Calculated Grams) 29877.3 [place] Body Weight 92.5 % [place] Body Weight 121 Body Mass Index (BMI) 24.2 Recent Weight Change No Weight Status Approriate GI Symptoms GI Symptoms None Last BM 11/20 x 1 Difficult in: None Food Allergies No Cultural/Ethnic/Sikh Belief none indicated Usual diet at home uknown Skin Integrity/Comment: Alexandro 20, Intact Current %PO Good (75-100%) Estimated Nutritional Goals BEE in Kcals: Using Current wt Calories/Kcals/Kg 50.9kg 25-30 kcal/kg Kcals Calculated ~0559-2759 kcal/day Protein: Using Current wt Protein g/k-1.2 gm/kg Protein Calculated ~50-60gm/day Fluid: ml ~6062-2044 ml/day Nutritional Problem 1. Problem Problem No nutrition diagnosis at this time Intervention/Recommendation Comments Continue current diet as tolerated by patient Expected Outcomes/Goals Expected Outcomes/Goals oral intake >75% of meals, weight stable or trend toward IBW, nutrition related labs WNL F/U LR 11/28-
--- NOTE | 2019-12-01 16:18 | Progress Notes ---
DATE: 12/01/2019 SUBJECTIVE: A 69-year-old female, currently in the hospital, somewhat more interactive today, answering more questions, stating that she typically lives with her and her grandson and was seen in the [facility], stating that her mood is "okay." She states she is feeling "better." She has been calmer on exam. Staff noting she is still acting strange sometimes mumbles to self, responds to internal stimuli, but generally more redirectable, sometimes spends time around the door, fair sleep and appetite, resting comfortably right now. Medications were reviewed. Labs reviewed. Vitals were reviewed. No overt side effects. No EPS, no akathisia. ASSESSMENT: A 69-year-old female showing some signs of improvement and answering more questions appropriately. Less restless. PLAN: We will continue inpatient monitoring, confirm a safe disposition, continue to slowly titrate dosing of medications as needed. JOB# [id number]
[2019-12-02] MEDS: INSULIN LISPRO SLIDING SCALE 100 UNITS/ML UNIT SUBQ SCH ×4 (06:43→21:25)
--- NOTE | 2019-12-02 13:26 | Progress Notes ---
DATE: 12/02/2019 SUBJECTIVE: The patient seems to be improving, a 69-year-old female, calm on exam. Mood "better," taking her medications. No overt side effects. Currently on dosing of Risperdal, Aricept. On [id number], the patient states her mood is "okay" and no agitation, no escalation of behaviors. Medications were reviewed. Labs were reviewed. Vitals were reviewed. ASSESSMENT: A 69-year-old female, currently in the hospital, seems to be improving. PLAN: We will attempt to coordinate care with social work regarding a safe discharge plan and good psychiatric followup. Tolerant of medications. JOB# [id number]
[2019-12-03] MEDS: INSULIN LISPRO SLIDING SCALE 100 UNITS/ML UNIT SUBQ SCH ×2 (06:36→11:30)
--- NOTE | 2019-12-03 12:20 | Discharge Summary ---
DATE OF DISCHARGE: 12/03/2019 HISTORY OF PRESENT ILLNESS: A 69-year-old female, currently in the hospital, talking very fast on exam, bizarre, making nonsensical statements, same as to harm other people, very poorly oriented, restless, making nonsensical statements. SOCIAL HISTORY: Poor historian. PAST PSYCHIATRIC HISTORY: Unclear. DIAGNOSIS: Likely schizophrenia. Concerns for dementia. PAST MEDICAL HISTORY: Please see full H and P. HOSPITAL COURSE: After initial assessment, the patient was started on medications, Aricept, Risperdal, metformin. Over the course of treatment, mood improved, affect improved, calm, generally more cooperative, telling me where she lives and who she lives with, more able to verbalize her needs. CONDITION UPON DISCHARGE: Improved, more engaged, confused. No SI, no HI, no intent, no plan. No psychotic symptoms. Staff noting, more able to follow redirection. DISCHARGE DIAGNOSES: Schizophrenia, dementia. MEDICAL: Please see full H and P. PROGNOSIS: The patient follows up with outpatient mental health services and remains compliant with treatment. Prognosis will improve, otherwise guarded. JOB# [id number]
== END 2019-12-03 16:00 | disposition home or self-care (01) | DRG 885 ==
LOC: GERO 21:41
PROVIDERS: ADMIT Psychiatry & Neurology Psychiatry; ATTEND Psychiatry & Neurology Psychiatry
DX: F20.9 Schizophrenia, unspecified (principal); E11.65 Type 2 diabetes mellitus with hyperglycemia; F31.9 Bipolar disorder, unspecified; I10 Essential (primary) hypertension; Z79.899 Other long term (current) drug therapy
CPT/HCPCS: 82948-90; 83036-90; Z7610